=== PATIENT | male | born 1965 | race Caucasian/White ===

== ENCOUNTER 2021-12-11 00:52 | Day surgery (SDC) | payer OTHER, SELFPAY ==
[2021-11-30 15:53] VITALS: BMI 29.2
--- NOTE | 2021-12-07 10:24 | SUR.PREOP ---
1024 called patient regarding his prep. He called and left a message regarding prep questions. Prep reviewed with pt. Instructed patient to not take his Magnesium Citrate to due the recall. Reviewed him stopping his blood thinners today and reviewed what he could have as far as intake the day of his prep. Patient voiced understanding.
--- NOTE | 2021-12-10 09:02 | WPDANESEPPF ---
Anes - Initial Pre Proc Eval Procedure: Operation Date: 12/11/21 08:30 Proposed Procedures p Screening Colonoscopy - Ralph Pineda MD Date/Time: 12/10/21 09:02 Surgeon: Ralph Pineda MD Pre Op Diagnosis: neoplasm screening, hx of colon polyps Patient Data Age: 55 Gender: M Height: 1.85 m Weight: 100.5 kg Allergies Allergy/AdvReac Type Severity Reaction Status Date / Time adhesive tape Allergy Intermediate Rash Verified 12/11/21 07:41 iohexol Allergy Intermediate Headache Verified 12/11/21 07:41 [From contrast - CT, X-RAY] Home Medications Medication Instructions Recorded Confirmed Type aspirin 81 mg tablet 81 mg PO DAILY 11/30/21 11/30/21 History multivit with minerals-iron 18 1 tablet PO DAILY 11/30/21 11/30/21 History mg-folic ac 400 mcg-vit K 25 mcg tablet (Adults Multivitamin) rosuvastatin 10 mg tablet 10 mg PO HS 11/30/21 11/30/21 History warfarin 1 mg tablet 1 mg PO DAILY 11/30/21 11/30/21 History warfarin 2 mg tablet 2 mg PO WEEKLY 11/30/21 11/30/21 History warfarin 5 mg tablet 5 mg PO DAILY 11/30/21 11/30/21 History Patient hx anesthesia problems: none Family hx anesthesia problems: none Results Review: All pre-operative results and documents have been reviewed as part of the pre-operative evaluation. [facility] Past Medical History Medical History (Updated 12/10/21 @ 16:53 by Ralph Pineda MD) DVT (deep venous thrombosis) History of pulmonary embolism 2005, 2007 Hyperlipidemia Family History Family History (Updated 11/28/15 @ 23:19 by DOCTOR UNKNOWN) Mother Hypertension Cerebrovascular accident Family history of diabetes mellitus in first degree relative Father Cerebrovascular accident Other Diabetes mellitus Social History Social History Smoking packs per day: 0.5 Smoking cigarettes per day: 10.0 Years smoked: 35 Smoking pack-years: 17.50 Smoking status: Current every day smoker Tobacco type: cigarettes Alcohol intake: current Substance use: never Substance use type: does not use Living arrangements: alone Spiritual care concerns: No Anes - Eval Final PreProcedure Day of Procedure 12/10/21 09:02 Patient weight: overweight Heart: regular rate and rhythm Lungs: clear to auscultation Airway: Mallampati scale class 1 Neurological: alert and oriented Last oral intake: >/= 8 hours ASA classification: III Emergent: no Anesthetic plan: proceed Anesthesia type and monitoring: general GIVS and standard monitoring Results Review: All pre-operative results and documents have been reviewed as part of the pre-operative evaluation. Informed Consent: The patient's anesthetic plan and its attendant risks and benefits were discussed with the patient/family/POA. Questions were solicited and answers provided to the satisfaction of the patient/family/POA.
--- NOTE | 2021-12-10 16:52 | PM.HPGS ---
History of Present Illness History of Present Illness Consent: Risks, benefits, and alternatives have been discussed and questions answered. Patient agrees to proceed with procedure. Chief complaint: neoplasm screening, hx of colon polyps Narrative: Nahum Jones is a 55 year old male Referred for colon cancer screening. He had 2 polyps removed about 7 years ago. Review of Systems Review of Systems: All systems reviewed & are unremarkable except as noted in HPI and below PMFSH Past Medical History Medical History DVT (deep venous thrombosis) History of pulmonary embolism 2005, 2007 Hyperlipidemia Family History Family History Mother Hypertension Cerebrovascular accident Family history of diabetes mellitus in first degree relative Father Cerebrovascular accident Other Diabetes mellitus Social History Social History Smoking packs per day: 0.5 Smoking cigarettes per day: 10.0 Years smoked: 35 Smoking pack-years: 17.50 Smoking status: Current every day smoker Tobacco type: cigarettes Alcohol intake: current Substance use: never Substance use type: does not use Living arrangements: alone Spiritual care concerns: No Meds Home Medications and Allergies Home Medications Medication Instructions Recorded Confirmed Type aspirin 81 mg tablet 81 mg PO DAILY 11/30/21 11/30/21 History multivit with minerals-iron 18 1 tablet PO DAILY 11/30/21 11/30/21 History mg-folic ac 400 mcg-vit K 25 mcg tablet (Adults Multivitamin) rosuvastatin 10 mg tablet 10 mg PO HS 11/30/21 11/30/21 History warfarin 1 mg tablet 1 mg PO DAILY 11/30/21 11/30/21 History warfarin 2 mg tablet 2 mg PO WEEKLY 11/30/21 11/30/21 History warfarin 5 mg tablet 5 mg PO DAILY 11/30/21 11/30/21 History Allergies Allergy/AdvReac Type Severity Reaction Status Date / Time adhesive tape Allergy Intermediate Rash Verified 12/11/21 07:41 iohexol Allergy Intermediate Headache Verified 12/11/21 07:41 [From contrast - CT, X-RAY] Exam Resp: Auscultation: clear to auscultation bilaterally Cardio: Rate: regular rate Rhythm: regular rhythm GI: GI Palp: Yes Soft to palpation and No Tenderness to palpation present (GI) Assessment and Plan Assessment and plan (1) Colon cancer screening: Code(s): Z12.11 - Encounter for screening for malignant neoplasm of colon Status: Acute Assessment and Plan: Colonoscopy with possible biopsy or polypectomy or cautery or injection of substances.
[2021-12-11 07:43] VITALS: BP 114/84; PULSE 76; RESP 16; TEMP 36.2; O2SAT 99; BMI 28.1
[2021-12-11] MEDS: LACTATED RINGERS 1,000 ML 150 ML IV CONT (07:45)
[2021-12-11 08:43] VITALS: BP 96/62; PULSE 66; RESP 17; O2SAT 95
[2021-12-11 08:53] VITALS: BP 103/67; PULSE 65; RESP 20; O2SAT 95
[2021-12-11 09:03] VITALS: BP 109/74; PULSE 59; RESP 20; O2SAT 99
== END 2021-12-11 09:14 | disposition home or self-care (01) ==
PROVIDERS: PCP Physician Assistant; Visit Provider Internal Medicine Gastroenterology
PROC: 0DJD8ZZ Inspection of Lower Intestinal Tract, Via Natural or Artificial Opening Endoscopic (ICD-10-PCS; CPT 45378; principal; 2021-12-11 08:30)
DX: Z12.11 Encounter for screening for malignant neoplasm of colon (principal); K63.5 Polyp of colon; K64.8 Other hemorrhoids; K57.30 Diverticulosis of large intestine without perforation or abscess without bleeding; E78.5 Hyperlipidemia, unspecified; Z86.718 Personal history of other venous thrombosis and embolism; Z86.711 Personal history of pulmonary embolism; F17.210 Nicotine dependence, cigarettes, uncomplicated; Z79.01 Long term (current) use of anticoagulants; Z79.82 Long term (current) use of aspirin
CPT/HCPCS: 45380; 88305; J2001; J2704; J7120